=== PATIENT | male | born 1960 | race Caucasian/White ===

== ENCOUNTER 2024-03-26 22:44 | Inpatient (IN) | payer BC ==
[~2024-03-26] VITALS: Ht 175.3 cm; Wt 88.6 kg
[2024-03-26] MEDS: nitroGLYCERIN 0.4mg SUBLingual tab SL PRN (23:05)
[2024-03-26] MEDS: aspirin 325mg tablet PO ONE (23:06)
[2024-03-26] MEDS: ondansetron/PF 4mg/2ml inj IV ONE (23:14)
[2024-03-26] MEDS: morphine 4 MG/ML inj SYRINge IV ONE (23:14)
[2024-03-26] MEDS ORDERED: heparin 10,000 units/1 ML INJ IV ONE (23:15)
[2024-03-26] MEDS: metoprolol tartrate 1mg/ml inj IV ONE (23:20)
[2024-03-26] MEDS: nitroGLYCERIN-Tridil 50MG/D5W 250 ML IV PRN (23:23)
[2024-03-26] MEDS: metoprolol tartrate 1mg/ml inj IV SCH (23:24)
[2024-03-26] MEDS: heparin 10,000 units/1 ML INJ IV ONE (23:26)
[2024-03-26] MEDS: heparin 25,000 UNIT/250ml bag 250 ML IV PRN (23:29)
[2024-03-26 23:34] LABS: BASOPHILS % (AUTO) 0.3 % (0-1); EOSINOPHILS # (AUTO) 0.4 X10'3 (0-0.9); EOSINOPHILS % (AUTO) 3.7 % (0-6); HEMATOCRIT 44.8 % (42.0-52.0); HEMOGLOBIN 15.7 g/dl (14.0-17.9); LYMPHOCYTES # (AUTO) 2.5 X10'3 (1.1-4.8); LYMPHOCYTES % (AUTO) 24.9 % (21-51); MEAN CORPUSCULAR HEMOGLOBIN 36.3 PG (27.0-31.0); MEAN CORPUSCULAR HGB CONC 35.1 g/dL (33.0-36.5); MEAN CORPUSCULAR VOLUME 103.4 FL (78-98); MEAN PLATELET VOLUME 7.4 FL (7.4-10.4); MONOCYTES # (AUTO) 1.9 X10'3 (0-0.9); MONOCYTES % (AUTO) 18.7 % (2-12); NEUTROPHILS # (AUTO) 5.3 X10'3 (1.8-7.7); NEUTROPHILS % (AUTO) 52.4 % (42-75); PLATELET COUNT 190 X10'3 (140-440); RED BLOOD COUNT 4.33 X10'6 (4.70-6.10); RED CELL DISTRIBUTION WIDTH 12.9 % (11.5-14.5); WHITE BLOOD COUNT 10.2 X10'3 (4.5-11.0)
[2024-03-26 23:42] LABS: APTT 27 SECONDS (22-32); INR 0.9 INR; PROTHROMBIN TIME 9.9 SECONDS (9.0-12.0)
[2024-03-26] MEDS ORDERED: ATOR20TA PO (23:42)
[2024-03-26] MEDS ORDERED: EZET10TA6 PO (23:42)
[2024-03-26] MEDS ORDERED: EMPA10TA PO (23:42)
[2024-03-26] MEDS ORDERED: DARU1TAB PO (23:42)
[2024-03-26] MEDS ORDERED: GABA-530 PO (23:42)
[2024-03-26] MEDS ORDERED: AZEL30SP3 BOTHNARES (23:42)
[2024-03-26] MEDS ORDERED: LOSA-415 PO (23:42)
[2024-03-26] MEDS ORDERED: DOLU1TAB2 PO (23:42)
[2024-03-26] MEDS ORDERED: ATRNS BOTHNARES (23:42)
[2024-03-26] MEDS ORDERED: TIROFIBAN IV SCH (23:45)
[2024-03-26] MEDS: MESSAGE TO NURSING IV ONE (23:45)
[2024-03-26] MEDS ORDERED: NS IV SCH (23:45)
[2024-03-26 23:52] LABS: ALANINE AMINOTRANSFERASE 55 U/L (12-78); ALBUMIN 3.7 G/DL (3.4-5.0); ALBUMIN/GLOBULIN RATIO 0.8 (1.1-1.5); ALKALINE PHOSPHATASE 73 IU/L (46-116); ANION GAP 8 (8-16); ASPARTATE AMINO TRANSFERASE 35 U/L (10-37); BILIRUBIN,TOTAL 0.4 MG/DL (0.1-1.0); BLOOD UREA NITROGEN 31 MG/DL (7-18); BUN/CREATININE RATIO 11.7 (10.0-20.0); CALCIUM 9.4 MG/DL (8.5-10.1); CHLORIDE 102 MMOL/L (99-107); CREATININE 2.66 MG/DL (0.60-1.10); GLUCOSE 146 MG/DL (70-104); POTASSIUM 3.7 MMOL/L (3.5-5.1); SODIUM 140 MMOL/L (135-145); TOTAL CARBON DIOXIDE 29.8 MMOL/L (24-32); TOTAL PROTEIN 8.2 G/DL (6.4-8.2); eCRCL 28 ML/MIN; eGFR 24 ML/MIN
[2024-03-26 23:53] LABS: TOTAL CELLS COUNTED 100
[2024-03-26 23:54] LABS: PLATELET ESTIMATE NORMAL
[2024-03-27] VITALS (17 sets, daily range): BP systolic 101–156; BP diastolic 57–95; PULSE 79–104; RESP 18–26; TEMP 97.6–98.2; O2SAT 97–98
[2024-03-27] LABS: BILIRUBIN,DIRECT 0.2 MG/DL (0-0.3); MAGNESIUM 2.4 MG/DL (1.5-2.4); PRO BRAIN NATRIURETIC PEPTIDE 672 PG/ML (0-125)
[2024-03-27 00:07] LABS: DIGOXIN < 0.2 NG/ML (0.9-1.9)
[2024-03-27] MEDS ORDERED: potassium Cl 40MEQ/1/2NS 520ml 520 ML IV PRN (00:30)
[2024-03-27] MEDS ORDERED: magnesium hydroxide 30ml (MOM) UD suspension PO PRN (00:30)
[2024-03-27] MEDS ORDERED: ondansetron/PF 4mg/2ml inj IV PRN ×2 (00:30→13:20)
[2024-03-27] MEDS ORDERED: magnesium sulf-water 4G/100mL 100 ML IV PRN (00:30)
[2024-03-27] MEDS ORDERED: magnesium sulf-water 2g/50mL 50 ML IV PRN (00:30)
[2024-03-27] MEDS ORDERED: mag hydrox/Alum hydrox/simeth 30ml oral suspension PO PRN (00:30)
[2024-03-27] MEDS ORDERED: magnesium Cl slow-release 64mg tablet PO PRN (00:30)
[2024-03-27] MEDS ORDERED: potassium Cl 20 mEq SR tablet PO PRN (00:30)
[2024-03-27] MEDS: tirofiban 12.5mg in NS 250mL 250 ML IV SCH (00:48)
[2024-03-27] MEDS: atorvastatin 20mg tablet PO ONE (01:17)
[2024-03-27] MEDS: sodium bicarbonate (8.4%) inj. 150 MEQ in dextrose 5%-water 1,000 ML IV ONE (01:28)
[2024-03-27] MEDS: acetylcysteine 200 MG/ml 4ml vial PO ONE ×2 (01:34→18:11)
[2024-03-27 02:01] LABS: BILIRUBIN,URINE NEGATIVE (Neg); CLARITY,URINE CLEAR (Clear); COLOR,URINE YELLOW (Yellow); GLUCOSE, URINE >=1000 mg/dl (Neg); KETONES,URINE NEGATIVE (Neg); LEUKOCYTE ESTERASE ,URINE NEGATIVE (Neg); NITRITES, URINE NEGATIVE (Neg); OCCULT BLOOD,URINE SMALL (Neg); PH,URINE 6.5 (4.8-8.0); PROTEIN,URINE 100 mg/dl (Neg); UROBILINOGEN,URINE 0.2 E.U/dL (0.2-1.0)
[2024-03-27 02:13] LABS: UA COLLECTION TYPE CLN CATCH MIDSTREAM
[2024-03-27 02:14] LABS: BACTERIA,URINE NONE SEEN /HPF (Neg); SQUAMOUS EPITHELIAL CELL,UR NONE SEEN /LPF (FEW); WBC,URINE NONE SEEN /HPF (0-4)
[2024-03-27] MEDS: nitroGLYCERIN 0.2mg/hour patch TD ONE (02:46)
[2024-03-27 02:47] LABS: MAGNESIUM 2.1 MG/DL (1.5-2.4); POTASSIUM 3.6 MMOL/L (3.5-5.1)
[2024-03-27 04:10] LABS: HEMOGLOBIN A1C 5.8 % (4.5-6.2)
[2024-03-27] MEDS: normal saline 1000ML IV soln IVB ONE (04:11)
[2024-03-27] MEDS: normal saline 1000ml 1,000 ML IV ONE (04:11)
[2024-03-27 06:32] LABS: BASOPHILS % (AUTO) 0.2 % (0-1); EOSINOPHILS # (AUTO) 0.2 X10'3 (0-0.9); EOSINOPHILS % (AUTO) 2.3 % (0-6); HEMATOCRIT 40.7 % (42.0-52.0); HEMOGLOBIN 14.2 g/dl (14.0-17.9); LYMPHOCYTES # (AUTO) 2.2 X10'3 (1.1-4.8); LYMPHOCYTES % (AUTO) 24.3 % (21-51); MEAN CORPUSCULAR HEMOGLOBIN 36.4 PG (27.0-31.0); MEAN CORPUSCULAR HGB CONC 34.9 g/dL (33.0-36.5); MEAN CORPUSCULAR VOLUME 104.2 FL (78-98); MEAN PLATELET VOLUME 7.4 FL (7.4-10.4); MONOCYTES # (AUTO) 1.7 X10'3 (0-0.9); NEUTROPHILS # (AUTO) 4.8 X10'3 (1.8-7.7); NEUTROPHILS % (AUTO) 54.2 % (42-75); PLATELET COUNT 178 X10'3 (140-440); RED CELL DISTRIBUTION WIDTH 12.8 % (11.5-14.5); WHITE BLOOD COUNT 8.9 X10'3 (4.5-11.0)
[2024-03-27] MEDS ORDERED: verapamil 2.5 mg/ml inj IV ONE (07:16)
[2024-03-27] MEDS ORDERED: LIDOcaine 1% (10mg/ml) 2ml vial ONE (07:16)
[2024-03-27] MEDS ORDERED: midazolam 1 mg/ML 2ml injection ONE (07:17)
[2024-03-27] MEDS ORDERED: fentaNYL/PF 50MCG/1 ML 2ML syringe ONE (07:17)
[2024-03-27] MEDS ORDERED: iohexol 350 MG/ML 50ML vial IV ONE (07:17)
[2024-03-27] MEDS ORDERED: heparin 1,000unit/ml 10ml vial 10 ML ONE (07:17)
[2024-03-27] MEDS ORDERED: iohexol 350MG/ML 100ml bottle IV ONE ×2 (07:17→09:22)
[2024-03-27] MEDS ORDERED: nitroGLYCERIN 500mcg/5mL D5W 10 ML IV ONE (07:26)
[2024-03-27] MEDS: heparin 10,000 units/1 ML INJ IV PRN (07:35)
[2024-03-27] MEDS: K and/or MAG REPLACEMENT MC SCH (08:00)
[2024-03-27] MEDS ORDERED: aspirin 81mg tab.chew ONE (08:00)
[2024-03-27] MEDS: docusate sod 100mg capsule PO SCH (08:00)
[2024-03-27] MEDS ORDERED: heparin 1,000 UNITS/NS 500ml 500 ML ONE ×2 (08:42→09:39)
[2024-03-27] MEDS ORDERED: ticagrelor 90mg tablet ONE (09:49)
[2024-03-27] MEDS ORDERED: proCHLORperazine 10 MG/2 ml inj IV PRN (13:20)
[2024-03-27] MEDS ORDERED: nitroGLYCERIN 0.4mg SUBLingual tab SL PRN (13:25)
[2024-03-27] MEDS: POTASSIUM CHLORIDE 20 MEQ/15 ML oral solution PO ONE (13:32)
[2024-03-27] MEDS: furosemide 20 MG/2 ML vial IV ONE (13:32)
[2024-03-27] MEDS: sodium bicarbonate 1meq/ml inj 150 ML in dextrose 5%-water 1,000 ML IV SCH (13:33)
[2024-03-27] MEDS: DOBUTamine-DoBUTrex 500mg/D5W 250 ML IV SCH (13:34)
[2024-03-27] MEDS: aspirin 81mg tab.chew PO ONE (13:41)
[2024-03-27] MEDS: normal saline 1000ml 1,000 ML IV SCH (13:50)
[2024-03-27] MEDS: ticagrelor 90mg tablet PO ONE (13:51)
[2024-03-27] MEDS: MESSAGE TO NURSING IV ONE (18:08)
[2024-03-27] MEDS: gabapentin 100mg capsule PO SCH (20:23)
[2024-03-27] MEDS: atorvastatin 20mg tablet PO SCH (20:23)
[2024-03-27] MEDS: DOLUTEGRAVIR SODIUM PO SCH (21:00)
[2024-03-27] MEDS: LAMIVUDINE PO SCH (21:00)
[2024-03-27] MEDS: COBICISTAT PO SCH (21:00)
[2024-03-27] MEDS: DARUNAVIR PO SCH (21:00)
[2024-03-27] MEDS: morphine 2 MG/ML inj. syringe IV PRN (21:50)
[2024-03-27] MEDS: ACETYLCYSTEINE 200 MG/1 ML 4 ML ORAL SOLUTION PO SCH (21:50)
[2024-03-28] VITALS (34 sets, daily range): BP systolic 68–121; BP diastolic 25–67; PULSE 85–116; RESP 11–26; TEMP 98.2–100; O2SAT 95–98
[2024-03-28] MEDS: OXAZEpam 15mg capsule PO PRN (06:58)
[2024-03-28 07:29] LABS: BASOPHILS % (AUTO) 0.2 % (0-1); EOSINOPHILS # (AUTO) 0.1 X10'3 (0-0.9); EOSINOPHILS % (AUTO) 1.1 % (0-6); HEMATOCRIT 37.2 % (42.0-52.0); HEMOGLOBIN 12.9 g/dl (14.0-17.9); LYMPHOCYTES # (AUTO) 1.9 X10'3 (1.1-4.8); LYMPHOCYTES % (AUTO) 17.2 % (21-51); MEAN CORPUSCULAR HEMOGLOBIN 35.7 PG (27.0-31.0); MEAN CORPUSCULAR HGB CONC 34.6 g/dL (33.0-36.5); MEAN CORPUSCULAR VOLUME 103.2 FL (78-98); MEAN PLATELET VOLUME 7.4 FL (7.4-10.4); MONOCYTES # (AUTO) 1.9 X10'3 (0-0.9); MONOCYTES % (AUTO) 16.8 % (2-12); NEUTROPHILS # (AUTO) 7.2 X10'3 (1.8-7.7); NEUTROPHILS % (AUTO) 64.7 % (42-75); PLATELET COUNT 155 X10'3 (140-440); RED BLOOD COUNT 3.61 X10'6 (4.70-6.10); RED CELL DISTRIBUTION WIDTH 12.7 % (11.5-14.5); WHITE BLOOD COUNT 11.1 X10'3 (4.5-11.0)
[2024-03-28 07:45] LABS: ALANINE AMINOTRANSFERASE 43 U/L (12-78); ALBUMIN 2.5 G/DL (3.4-5.0); ALBUMIN/GLOBULIN RATIO 0.7 (1.1-1.5); ALKALINE PHOSPHATASE 54 IU/L (46-116); ANION GAP 8 (8-16); ASPARTATE AMINO TRANSFERASE 100 U/L (10-37); BILIRUBIN,TOTAL 0.6 MG/DL (0.1-1.0); BLOOD UREA NITROGEN 20 MG/DL (7-18); BUN/CREATININE RATIO 8.5 (10.0-20.0); CALCIUM 7.7 MG/DL (8.5-10.1); CHLORIDE 102 MMOL/L (99-107); CHOL/HDL RATIO 2.4 (0.00-4.99); CHOLESTEROL 111 MG/DL (0-200); CREATININE 2.35 MG/DL (0.60-1.10); GLUCOSE 132 MG/DL (70-104); HDL CHOLESTEROL 47 MG/DL (35-60); LDL CHOLESTEROL 46 MG/DL (50-100); MAGNESIUM 2.1 MG/DL (1.5-2.4); POTASSIUM 3.5 MMOL/L (3.5-5.1); SODIUM 137 MMOL/L (135-145); TOTAL CARBON DIOXIDE 27.4 MMOL/L (24-32); TOTAL PROTEIN 6.3 G/DL (6.4-8.2); TRIGLYCERIDES 113 MG/DL (20-135); eCRCL 32 ML/MIN; eGFR 28 ML/MIN
[2024-03-28] MEDS: aspirin 81mg, enteric-coated 1 TAB TABLET.DR PO SCH (08:00)
[2024-03-28] MEDS: ticagrelor 90mg tablet PO SCH (10:42)
[2024-03-28] MEDS: heparin, porcine 5000 units/ml vial SQ ONE (11:19)
[2024-03-28] MEDS: heparin, porcine 5000 units/ml vial SQ SCH (16:00)
[2024-03-28 16:08] LABS: CHLORIDE,URINE RANDOM 62 MEQ/L; SODIUM,URINE RANDOM 82 MEQ/L; TOTAL PROTEIN,URINE RANDOM 59.9 MG/DL; URINE AMPHETAMINE SCREEN NEGATIVE (Neg); URINE BARBITUATE SCREEN NEGATIVE (Neg); URINE BENZODIAZEPINES SCREEN POSITIVE (Neg); URINE CANNABINOID SCREEN NEGATIVE (Neg); URINE COCAINE SCREEN NEGATIVE (Neg); URINE METHADONE SCREEN NEGATIVE (Neg); URINE OPIATE SCREEN POSITIVE (Neg); URINE PHENCYCLIDINE SCREEN NEGATIVE (Neg)
[2024-03-28] MEDS: normal saline 500ml IV soln 500 ML IV ONE ×2 (17:50→22:51)
[2024-03-28] MEDS: acetaminophen 325mg tablet PO PRN (19:49)
[2024-03-28] MEDS: DOBUTamine-DoBUTrex 500mg/D5W 250 ML IV SCH (23:12)
[2024-03-29] VITALS (21 sets, daily range): BP systolic 101–145; BP diastolic 51–82; PULSE 93–107; RESP 13–34; TEMP 97.7–98.9; O2SAT 93–99
[2024-03-29] MEDS: normal saline 500ml IV soln 500 ML IV SCH (03:55)
[2024-03-29 05:49] LABS: ALANINE AMINOTRANSFERASE 48 U/L (12-78); ALBUMIN 2.4 G/DL (3.4-5.0); ALBUMIN/GLOBULIN RATIO 0.7 (1.1-1.5); ALKALINE PHOSPHATASE 51 IU/L (46-116); ANION GAP 8 (8-16); ASPARTATE AMINO TRANSFERASE 85 U/L (10-37); BASOPHILS % (AUTO) 0.1 % (0-1); BILIRUBIN,TOTAL 1.4 MG/DL (0.1-1.0); BLOOD UREA NITROGEN 24 MG/DL (7-18); BUN/CREATININE RATIO 9.5 (10.0-20.0); CALCIUM 7.4 MG/DL (8.5-10.1); CHLORIDE 105 MMOL/L (99-107); CREATININE 2.53 MG/DL (0.60-1.10); EOSINOPHILS # (AUTO) 0.1 X10'3 (0-0.9); EOSINOPHILS % (AUTO) 0.8 % (0-6); GLUCOSE 141 MG/DL (70-104); HEMATOCRIT 35.8 % (42.0-52.0); HEMOGLOBIN 12.3 g/dl (14.0-17.9); LYMPHOCYTES # (AUTO) 1.2 X10'3 (1.1-4.8); LYMPHOCYTES % (AUTO) 9.8 % (21-51); MAGNESIUM 1.8 MG/DL (1.5-2.4); MEAN CORPUSCULAR HEMOGLOBIN 35.5 PG (27.0-31.0); MEAN CORPUSCULAR HGB CONC 34.5 g/dL (33.0-36.5); MEAN PLATELET VOLUME 7.4 FL (7.4-10.4); MONOCYTES # (AUTO) 1.5 X10'3 (0-0.9); MONOCYTES % (AUTO) 11.5 % (2-12); NEUTROPHILS # (AUTO) 9.9 X10'3 (1.8-7.7); NEUTROPHILS % (AUTO) 77.8 % (42-75); PLATELET COUNT 155 X10'3 (140-440); POTASSIUM 3.4 MMOL/L (3.5-5.1); RED BLOOD COUNT 3.48 X10'6 (4.70-6.10); RED CELL DISTRIBUTION WIDTH 12.6 % (11.5-14.5); SODIUM 140 MMOL/L (135-145); TOTAL CARBON DIOXIDE 26.6 MMOL/L (24-32); TOTAL PROTEIN 5.9 G/DL (6.4-8.2); WHITE BLOOD COUNT 12.7 X10'3 (4.5-11.0); eCRCL 30 ML/MIN; eGFR 26 ML/MIN
[2024-03-29 06:23] LABS: PRO BRAIN NATRIURETIC PEPTIDE 12580 PG/ML (0-125)
[2024-03-29] MEDS: furosemide 40mg/4ml inj IV ONE (10:15)
[2024-03-29 11:51] LABS: ABG BASE EXCESS -3.9 mmol/L (-2.0-3.0); ABG HCO3 17.6 mmol/L (21.0-28.0); ABG OXYGEN SATURATION 92.7 % (94.0-98.0); ABG PCO2 (T) 23.7 mmHg (35.0-48.0); ABG PH (T) 7.488 (7.350-7.450); ABG PO2 (T) 57.8 mmHg (83.0-108.0); ALLEN'S TEST POSITIVE; FHHb 7.2 % (0.0-5.0); FLOW 2 L/min; FMetHb 0.3 % (0.0-1.5); FO2Hb 91.5 % (94.0-98.0); MODE MASK - VENTI; TOTAL HEMOGLOBIN 13.5 G/dl (13.5-17.5)
[2024-03-29] MEDS: acetaZOLAMIDE IV 500mg inj IV ONE (12:45)
[2024-03-29] MEDS: potassium Cl 20 mEq SR tablet PO PRN (15:24)
[2024-03-29] MEDS: furosemide 20 MG/2 ML vial IV ONE (15:55)
[2024-03-29] MEDS: potassium Cl 20 mEq SR tablet PO STA (15:55)
[2024-03-29] MEDS: acetaZOLAMIDE IV 500mg inj IV SCH (21:08)
[2024-03-29] MEDS: gabapentin 300mg capsule PO SCH (21:08)
[2024-03-29] MEDS: atorvastatin 10mg tablet PO SCH (21:11)
[2024-03-30] VITALS (17 sets, daily range): BP systolic 104–141; BP diastolic 48–79; PULSE 89–97; RESP 14–30; TEMP 96.8–99.3; O2SAT 93–97
[2024-03-30 06:53] LABS: BASOPHILS % (AUTO) 0.1 % (0-1); EOSINOPHILS % (AUTO) 0.3 % (0-6); HEMATOCRIT 36.7 % (42.0-52.0); HEMOGLOBIN 12.4 g/dl (14.0-17.9); LYMPHOCYTES # (AUTO) 1.4 X10'3 (1.1-4.8); LYMPHOCYTES % (AUTO) 8.6 % (21-51); MEAN CORPUSCULAR HEMOGLOBIN 35.4 PG (27.0-31.0); MEAN CORPUSCULAR HGB CONC 33.8 g/dL (33.0-36.5); MEAN CORPUSCULAR VOLUME 104.7 FL (78-98); MEAN PLATELET VOLUME 7.7 FL (7.4-10.4); MONOCYTES # (AUTO) 1.8 X10'3 (0-0.9); MONOCYTES % (AUTO) 10.8 % (2-12); NEUTROPHILS # (AUTO) 13.1 X10'3 (1.8-7.7); NEUTROPHILS % (AUTO) 80.2 % (42-75); PLATELET COUNT 154 X10'3 (140-440); RED BLOOD COUNT 3.51 X10'6 (4.70-6.10); RED CELL DISTRIBUTION WIDTH 12.9 % (11.5-14.5); WHITE BLOOD COUNT 16.3 X10'3 (4.5-11.0)
[2024-03-30 07:03] LABS: ALANINE AMINOTRANSFERASE 77 U/L (12-78); ALBUMIN 2.4 G/DL (3.4-5.0); ALBUMIN/GLOBULIN RATIO 0.6 (1.1-1.5); ALKALINE PHOSPHATASE 52 IU/L (46-116); ANION GAP 12 (8-16); ASPARTATE AMINO TRANSFERASE 144 U/L (10-37); BILIRUBIN,TOTAL 1.6 MG/DL (0.1-1.0); BLOOD UREA NITROGEN 26 MG/DL (7-18); BUN/CREATININE RATIO 9.1 (10.0-20.0); CALCIUM 8.1 MG/DL (8.5-10.1); CHLORIDE 102 MMOL/L (99-107); CREATININE 2.87 MG/DL (0.60-1.10); GLUCOSE 162 MG/DL (70-104); MAGNESIUM 1.9 MG/DL (1.5-2.4); POTASSIUM 3.8 MMOL/L (3.5-5.1); SODIUM 137 MMOL/L (135-145); TOTAL CARBON DIOXIDE 22.8 MMOL/L (24-32); TOTAL PROTEIN 6.7 G/DL (6.4-8.2); eCRCL 26 ML/MIN; eGFR 22 ML/MIN
[2024-03-30 07:48] LABS: HEP B CORE AB, IGM Negative (Negative); HEP B SURF AB Non Reactive (.)
[2024-03-30 08:38] LABS: HBSAG SCREEN Negative (Negative); HEP B CORE AB, TOT Negative (Negative)
[2024-03-30 14:14] LABS: BASOPHILS % (AUTO) 0.1 % (0-1); EOSINOPHILS # (AUTO) 0.1 X10'3 (0-0.9); EOSINOPHILS % (AUTO) 0.4 % (0-6); HEMATOCRIT 37.9 % (42.0-52.0); HEMOGLOBIN 12.7 g/dl (14.0-17.9); LYMPHOCYTES # (AUTO) 1.4 X10'3 (1.1-4.8); LYMPHOCYTES % (AUTO) 8.4 % (21-51); MEAN CORPUSCULAR HEMOGLOBIN 35.4 PG (27.0-31.0); MEAN CORPUSCULAR HGB CONC 33.5 g/dL (33.0-36.5); MEAN CORPUSCULAR VOLUME 105.7 FL (78-98); MEAN PLATELET VOLUME 7.9 FL (7.4-10.4); MONOCYTES # (AUTO) 1.9 X10'3 (0-0.9); MONOCYTES % (AUTO) 11.2 % (2-12); NEUTROPHILS # (AUTO) 13.4 X10'3 (1.8-7.7); NEUTROPHILS % (AUTO) 79.9 % (42-75); PLATELET COUNT 184 X10'3 (140-440); RED BLOOD COUNT 3.59 X10'6 (4.70-6.10); RED CELL DISTRIBUTION WIDTH 12.7 % (11.5-14.5); WHITE BLOOD COUNT 16.8 X10'3 (4.5-11.0)
[2024-03-30] MEDS ORDERED: furosemide 40mg/4ml inj IV SCH (20:00)
[2024-03-30] MEDS: furosemide 40mg/4ml inj IV SCH (20:35)
[2024-03-30] MEDS: atorvastatin 10mg tablet PO SCH (20:36)
[2024-03-31 02:00] VITALS: BP 108/62; PULSE 85; RESP 22; TEMP 97.3; O2SAT 95
[2024-03-31 07:00] VITALS: BP 101/50; PULSE 85; RESP 26; TEMP 97.5; O2SAT 95
[2024-03-31 07:36] LABS: BASOPHILS % (AUTO) 0.1 % (0-1); EOSINOPHILS # (AUTO) 0.2 X10'3 (0-0.9); HEMATOCRIT 38.4 % (42.0-52.0); HEMOGLOBIN 12.6 g/dl (14.0-17.9); LYMPHOCYTES # (AUTO) 1.9 X10'3 (1.1-4.8); LYMPHOCYTES % (AUTO) 11.1 % (21-51); MEAN CORPUSCULAR HEMOGLOBIN 34.7 PG (27.0-31.0); MEAN CORPUSCULAR HGB CONC 32.9 g/dL (33.0-36.5); MEAN CORPUSCULAR VOLUME 105.4 FL (78-98); MEAN PLATELET VOLUME 7.7 FL (7.4-10.4); MONOCYTES # (AUTO) 2.3 X10'3 (0-0.9); MONOCYTES % (AUTO) 12.9 % (2-12); NEUTROPHILS # (AUTO) 13.1 X10'3 (1.8-7.7); NEUTROPHILS % (AUTO) 74.9 % (42-75); PLATELET COUNT 183 X10'3 (140-440); RED BLOOD COUNT 3.64 X10'6 (4.70-6.10); WHITE BLOOD COUNT 17.5 X10'3 (4.5-11.0)
[2024-03-31 08:00] VITALS: RESP 16; O2SAT 94
[2024-03-31 09:58] LABS: ALANINE AMINOTRANSFERASE 101 U/L (12-78); ALBUMIN 2.2 G/DL (3.4-5.0); ALBUMIN/GLOBULIN RATIO 0.5 (1.1-1.5); ALKALINE PHOSPHATASE 56 IU/L (46-116); ANION GAP 11 (8-16); ASPARTATE AMINO TRANSFERASE 122 U/L (10-37); BILIRUBIN,TOTAL 1.4 MG/DL (0.1-1.0); BLOOD UREA NITROGEN 32 MG/DL (7-18); BUN/CREATININE RATIO 10.6 (10.0-20.0); CALCIUM 8.4 MG/DL (8.5-10.1); CHLORIDE 101 MMOL/L (99-107); CREATININE 3.02 MG/DL (0.60-1.10); GLUCOSE 111 MG/DL (70-104); MAGNESIUM 1.9 MG/DL (1.5-2.4); POTASSIUM 3.4 MMOL/L (3.5-5.1); SODIUM 132 MMOL/L (135-145); TOTAL CARBON DIOXIDE 19.8 MMOL/L (24-32); eCRCL 25 ML/MIN; eGFR 21 ML/MIN
[2024-03-31 11:00] VITALS: BP 112/73; PULSE 85; RESP 26; TEMP 97.8; O2SAT 96
[2024-03-31 15:00] VITALS: BP 130/73; PULSE 91; RESP 26; TEMP 97.9; O2SAT 98
[2024-03-31] MEDS ORDERED: TICA90TA PO (15:29)
[2024-03-31] MEDS ORDERED: ATOR10TA PO (15:29)
[2024-03-31] MEDS ORDERED: ASPI-1071 PO (15:29)
[2024-03-31] MEDS ORDERED: FURO20TA4 PO (15:36)
[2024-03-31] MEDS ORDERED: LEVO-65 PO (15:37)
[2024-03-31] MEDS: potassium Cl 20 mEq SR tablet PO STA (15:59)
[2024-03-31] MEDS ORDERED: AZIT500T PO (19:51)
== END 2024-03-31 18:30 | disposition home or self-care (01) | DRG 321 ==
LOC: ER 22:46 → ED HOLD 03-27 00:41 → EDBEDREQ 03-27 06:57 → PCU 3S 03-27 10:36
PROVIDERS: ADMIT Internal Medicine; ATTEND Nurse Practitioner Family
PROC: 027135Z Dilation of Coronary Artery, Two Arteries with Two Drug-eluting Intraluminal Devices, Percutaneous Approach (ICD-10-PCS; principal; 2024-03-27)
PROC: 02703ZZ Dilation of Coronary Artery, One Artery, Percutaneous Approach (ICD-10-PCS; 2024-03-27)
PROC: 4A023N7 Measurement of Cardiac Sampling and Pressure, Left Heart, Percutaneous Approach (ICD-10-PCS; 2024-03-27)
PROC: B2111ZZ Fluoroscopy of Multiple Coronary Arteries using Low Osmolar Contrast (ICD-10-PCS; 2024-03-27)
PROC: B2151ZZ Fluoroscopy of Left Heart using Low Osmolar Contrast (ICD-10-PCS; 2024-03-27)
DX: I21.4 Non-ST elevation (NSTEMI) myocardial infarction (principal); I50.33 Acute on chronic diastolic (congestive) heart failure; I13.0 Hypertensive heart and chronic kidney disease with heart failure and stage 1 through stage 4 chronic kidney disease, or unspecified chronic kidney disease; E87.3 Alkalosis; N18.4 Chronic kidney disease, stage 4 (severe); N17.9 Acute kidney failure, unspecified; Z66 Do not resuscitate; E11.22 Type 2 diabetes mellitus with diabetic chronic kidney disease; I25.110 Atherosclerotic heart disease of native coronary artery with unstable angina pectoris; E78.00 Pure hypercholesterolemia, unspecified; I45.6 Pre-excitation syndrome; R74.01 Elevation of levels of liver transaminase levels; Z90.79 Acquired absence of other genital organ(s); Z85.46 Personal history of malignant neoplasm of prostate; Z90.49 Acquired absence of other specified parts of digestive tract; Z88.1 Allergy status to other antibiotic agents; Z79.899 Other long term (current) drug therapy; Z98.42 Cataract extraction status, left eye; Z87.891 Personal history of nicotine dependence
CPT/HCPCS: 92920; 93306; 93458; 99291; 99292; C9600; C9601; 36415; 36600; 71045; 76770; 76937; 80048; 80053; 80061; 80076; 80162; 80305; 81001; 82436; 82570; 82803; 82948; 83036; 83735; 83880; 84132; 84133; 84145; 84156; 84300; 84484; 84540; 85007; 85018; 85025; 85347; 85610; 85651; 85730; 86704; 86705; 86706; 87070; 87081; 87340; 93005; 93975; 97161; 97530; 99152; 99153; A4620; A6258; C1725; C1751; C1769; C1874; C1894; G0378; J1120; J1250; J1644; J1940; J2003; J2250; J2270; J2405; J3010; J3246; J3490; J7030; J7040; J7070; Q9967